=== PATIENT | male | born 1985 | race Two or more races ===

== ENCOUNTER 2023-04-27 09:45 | Emergency (ER) | payer BC ==
[~2023-04-27] VITALS: Ht 177.8 cm; Wt 73.5 kg
[2023-04-27] MEDS ORDERED: methylPREDNISolone SOD SUCC 125 MG/2ML VIAL ONE (10:28)
[2023-04-27] MEDS ORDERED: diphenhydrAMINE HCL ELIX 25 MG/10 ML UDC ONE (10:28)
[2023-04-27] MEDS ORDERED: FAMOTIDINE/PF INJ 20 MG/2 ML VIAL IV ONE (10:29)
[2023-04-27] MEDS ORDERED: diphenhydrAMINE HCL 50 MG/ML VIAL ONE (10:30)
[2023-04-27] MEDS: IV NS 0.9% 1,000 ML BAG IV ONE (10:49)
[2023-04-27] MEDS: diphenhydrAMINE HCL 50 MG/ML VIAL IV ONE (10:49)
[2023-04-27] MEDS: methylPREDNISolone SOD SUCC 125 MG/2ML VIAL IV ONE (10:49)
[2023-04-27] MEDS: FAMOTIDINE/PF INJ 20 MG/2 ML VIAL IV ONE (10:50)
[2023-04-27] MEDS ORDERED: DOXY100C2 PO (11:27)
[2023-04-27] MEDS ORDERED: FAMO-131 PO (11:27)
[2023-04-27] MEDS ORDERED: DIPH25CA83 PO (11:27)
[2023-04-27] MEDS ORDERED: EPIN0.3P3 IM (11:27)
[2023-04-27] MEDS ORDERED: PRED20TA PO (11:27)
[2023-04-27 12:14] VITALS: BP 100/74; TEMP 98.2; O2SAT 100
== END 2023-04-27 12:15 | disposition home or self-care (01) ==
LOC: ER 09:55
DX: T78.40XA Allergy, unspecified, initial encounter (principal); L50.9 Urticaria, unspecified; K13.0 Diseases of lips; Z88.0 Allergy status to penicillin; X58.XXXA Exposure to other specified factors, initial encounter
CPT/HCPCS: 99284; 96374; 71045; 96375; 96361; J1200; J3490; J2930; J7030; Q0163

== ENCOUNTER 2023-04-29 12:11 | Emergency (ER) | payer BC ==
[~2023-04-29] VITALS: Ht 177.8 cm; Wt 73.5 kg
[~2023-04-29 12:11] MED LIST: DIPH25CA83 PO; DOXY100C2 PO; EPIN0.3P3 IM; FAMO-131 PO; PRED20TA PO
[2023-04-29 13:40] LABS: MONOTEST NEGATIVE (NEGATIVE)
[2023-04-29 14:59] VITALS: BP 122/78; TEMP 98.2; O2SAT 100
== END 2023-04-29 14:45 | disposition home or self-care (01) ==
LOC: ER 12:24
DX: L25.8 Unspecified contact dermatitis due to other agents (principal); T49.0X5A Adverse effect of local antifungal, anti-infective and anti-inflammatory drugs, initial encounter; Z88.0 Allergy status to penicillin; Y92.89 Other specified places as the place of occurrence of the external cause
CPT/HCPCS: 36415; 86308-TC

== ENCOUNTER 2023-07-23 02:37 | Emergency (ER) | payer BC ==
[~2023-07-23] VITALS: Ht 177.8 cm; Wt 77.1 kg
[2023-07-23 03:43] VITALS: TEMP 97.8
[2023-07-23] MEDS ORDERED: OXYC-133 PO (04:12)
[2023-07-23] MEDS ORDERED: HYDROMORPHONE HCL 2 MG TABLET ONE (04:13)
[2023-07-23] MEDS ORDERED: ONDANSETRON 4 MG TAB.RAPDIS ONE (04:13)
[2023-07-23] MEDS: ONDANSETRON 4 MG TAB.RAPDIS SL ONE (04:14)
[2023-07-23] MEDS: HYDROMORPHONE HCL 2 MG TABLET PO PRN (04:15)
[2023-07-23 05:29] VITALS: BP 113/72; O2SAT 98
== END 2023-07-23 05:30 | disposition home or self-care (01) ==
LOC: ER 02:37
DX: S32.2XXA Fracture of coccyx, initial encounter for closed fracture (principal); Z79.899 Other long term (current) drug therapy; Z88.1 Allergy status to other antibiotic agents; X58.XXXA Exposure to other specified factors, initial encounter; Y93.89 Activity, other specified; Y92.89 Other specified places as the place of occurrence of the external cause; Y99.8 Other external cause status
CPT/HCPCS: 99284; 72220; 72170; Q0162